=== PATIENT | male | born 1995 | race Caucasian/White ===

== ENCOUNTER 2017-05-30 20:20 | Observation (INO) | payer OTHER ==
[~2017-05-30 20:20] MED LIST: ISOVUE-370 76%-LOCM 1 ML ONE
[2017-05-30 21:15] LABS: #Lymphocytes 1.3 thou/uL (1.20-3.40); #Monocytes 1.4 thou/uL (0.11-0.59); #Neutrophils 15.1 thou/uL (1.40-6.50); %Basophils 0.1 % (0.0-1.0); %Eosinophils 0.1 % (0.0-10.0); %Lymphocytes 7.1 % (21.0-51.0); %Monocytes 7.9 % (0.0-10.0); Hematocrit 49.5 % (42.0-52.0); Mean Platelet Volume 7.7 fL (7.4-10.4); Red Blood Cell (RBC) Count 5.49 mill/uL (4.70-6.10); White Blood Cell (WBC) Count 17.8 thou/uL (4.8-10.8)
[2017-05-30 21:36] LABS: ALT (SGPT) 16 U/L (8-55); AST (SGOT) 32 U/L (5-34); Alkaline Phosphatase 57 U/L (40-150); Anion Gap 17 mmol/L (10-20); BUN (Urea Nitrogen) 13 mg/dL (8.9-20.6); Bilirubin, Total 1.4 mg/dL (0.2-1.2); Calc. Creatinine Clearance 0 mL/min (70-130); Calcium 9.6 mg/dL (7.8-10.44); Carbon Dioxide 24 mmol/L (22-29); Chloride 100 mmol/L (98-107); Estimated GFR-MDRD Greater than 90; Globulin 3.5 g/dL (2.4-3.5); Lipase 6 U/L (8-78); Protein, Total 7.9 g/dL (6.0-8.3)
[2017-05-30] MEDS ORDERED: Ondansetron HCl/PF 4 MG/2 ML Vial ONE (21:41)
[2017-05-30] MEDS ORDERED: Piperacillin/Tazobactam 3.375 GM in Sodium Chloride 0.9% 100 ML IVPB SCH (22:45)
--- NOTE | 2017-05-30 22:55 | CT ---
CT ABDOMEN AND PELVIS WITH CONTRAST 05/30/17 HISTORY: Coffee ground vomiting and right lower quadrant pain with subjective fever. COMPARISON: None. FINDINGS: The lung bases are clear. No pericardial effusion. The appendix is dilated and fluid filled with abnormal fluid in the right pericolic gutter. No append icolith is appreciated. The appendix travels posterior and laterally from the cecal base and the tip extends anterior to the ascending colon. Liver, gallbladder, pancreas are unremarkable. The spleen is enlarged measuring almost 13 cm. There are few mildly distended loops of small bowel in the mid abdomen that may reflect a focal ileus . The skeleton is unremarkable. IMPRESSION: Acute appendicitis with the appendix originating posterior to the cecal base extending laterally ric g the left paracolic gutter with tip anterior to the ascending colon. There is moderate inflammatory stranding as well as small volume free fluid. This is concerning for early transudation of fluid acro ss the wall with a focal area of poor mucosal enhancement anteriorly, series 2, image 57 which may re present early small focal perforation. Code CR Dr. Covington, 10:24 p.m. POS: [facility]
[2017-05-31] MEDS ORDERED: Morphine 4 MG/ML VIAL IV PRN (00:09)
[2017-05-31] MEDS: Dextrose 5 %-0.45 % NaCl 1,000 ML IV SCH ×2 (00:37→07:44)
[2017-05-31 01:06] VITALS: BMI 25.0
[2017-05-31] MEDS ORDERED: Piperacillin/Tazobactam 3.375 GM in Sodium Chloride 0.9% 100 ML IVPB SCH ×2 (06:30→12:00)
[2017-05-31] MEDS ORDERED: Morphine PF 1 MG/ML SYR IV PRN (06:46)
[2017-05-31] MEDS ORDERED: Fentanyl 100 MCG/2 ML VIAL ONE (07:24)
[2017-05-31] MEDS ORDERED: Bupivacaine/Epinephrine 0.25% 30 ML VIAL ONE (07:33)
[2017-05-31] MEDS ORDERED: Succinylcholine Chloride 20 MG/ML 10 ml SYRINGE FS ONE (08:20)
[2017-05-31] MEDS ORDERED: Ketorolac Tromethamine 30 MG/ML VIAL ONE (08:20)
[2017-05-31] MEDS ORDERED: Dexamethasone 20 MG/5 ML VIAL ONE (08:20)
[2017-05-31] MEDS ORDERED: Ondansetron HCl/PF 4 MG/2 ML Vial ONE (08:20)
[2017-05-31] MEDS ORDERED: Propofol 200 MG/20 ML VIAL ONE (08:20)
[2017-05-31] MEDS ORDERED: Lidocaine 2% PF 10 ML AMP (For Epidural Use) ONE (08:20)
[2017-05-31] MEDS ORDERED: Glycopyrrolate 0.2 MG/ML 5 ML SYRINGE ONE (08:20)
--- NOTE | 2017-05-31 08:57 | HP ---
CHIEF COMPLAINT: Abdominal pain. HISTORY OF PRESENT ILLNESS: Mr. Stephens is a 22-year-old man who had onset of nausea and vomiting ab out 2 hours after eating a [employer]. He felt bad, but did not hurt in one particular area. He w ent to bed. When he woke up the next morning, he had abdominal pain. This went from being generaliz ed to more localized in the right lower quadrant, so he came into the emergency room. He had subject jac fevers and chills, but did not take his temperature. PAST MEDICAL HISTORY: None. PAST SURGICAL HISTORY: [place]ow tooth and ear surgery, but no abdominal surgeries. FAMILY HISTORY: Skin cancer, hypertension, and cardiomegaly on his father's side. SOCIAL HISTORY: Occasional marijuana. No smoking, no drinking. ALLERGIES: He has allergies to adverse drug reactions to LATEX and ALBUTEROL. MEDICATIONS: He is not on any medications. He did receive Zosyn in the emergency room. REVIEW OF SYSTEMS: Ten system review of systems is negative except per HPI. PHYSICAL EXAMINATION: VITAL SIGNS: Patient has been afebrile since his admission. Heart rate 70, respirations 18, blood p ressure 135/71, 98% saturated on room air. GENERAL: Reveals a healthy appearing young man, in no acute distress. He is slightly flushed, but n ot toxic in appearance. He is not jaundiced or icteric. HEENT: Unremarkable. NECK: Supple, without lymphadenopathy or thyroid nodules. HEART: Regular in its rate and rhythm without murmurs, rubs or gallops. LUNGS: Clear to auscultation bilaterally. He does not have any pain with deep inspiration. ABDOMEN: Soft and nondistended. He does not have any palpable masses or hernias. He is very tender to palpation in the right lower quadrant. He has referred pain to the right lower quadrant with pal pation in the left abdomen, but does not exhibit rigidity, rebound or guarding. EXTREMITIES: Warm and well perfused without edema. NEUROLOGIC: No focal deficits. PSYCHIATRIC: Alert, oriented, and appropriate. IMAGING: CT images are reviewed and I agree with the written report. The patient has a very dilated appendix with some periappendiceal fluid. No other acute abnormalities are noted. LABORATORY DATA: White count is elevated at 17.8 with a left shift. Electrolytes are unremarkable. His potassium is slightly low at 3.4, bilirubin is slightly high at 1.4, but other LFTs are normal. ASSESSMENT: Acute appendicitis. PLAN: Laparoscopic appendectomy. The patient's diagnosis and recommended treatment were discussed w ith him in detail. The inherent risks of surgery were also discussed. These include but are not cunha ited to bleeding, infection, risks of anesthesia, damage to nearby structure including bowel and bloo d vessels, need for open operation or further procedures. He understands that if the appendix is per forated, then we will undergo washout and drain placement as well and will need to stay in the hospit al for ongoing IV antibiotics until his infection resolved. If his appendix is not perforated, he ma y be discharged home later today. All of his questions were answered and he wishes to proceed.
[2017-05-31] MEDS ORDERED: HYDROmorphone 2 MG/ML VIAL SLOW IVP PRN (09:58)
[2017-05-31] MEDS ORDERED: Promethazine HCl 25 MG/ML VIAL IM PRN (09:58)
[2017-05-31] MEDS ORDERED: Ondansetron HCl/PF 4 MG/2 ML Vial IVP PRN (09:58)
[2017-05-31] MEDS ORDERED: Promethazine HCl 25 MG/ML VIAL SLOW IVP PRN (09:58)
[2017-05-31] MEDS ORDERED: HYDROcodone/Acetaminophen 7.5/325 mg Tablet PO PRN ×2 (11:29)
[2017-05-31] MEDS ORDERED: Morphine PF 1 MG/ML SYR IVP PRN (11:30)
[2017-05-31] MEDS ORDERED: Morphine 4 MG/ML VIAL SLOW IVP PRN ×2 (11:30→11:31)
[2017-05-31] MEDS ORDERED: Piperacillin/Tazobactam 3.375 GM, Admixture Fee 1 EACH in Sodium Chloride 0.9% 100 ML IVPB SCH (12:00)
[2017-05-31 12:27] VITALS: BP 139/79; TEMP 98.6
--- NOTE | 2017-06-01 00:45 | PDOC.OP ---
Operative Note - Operative Note Operative Note: PROCEDURE: Laparoscopic appendectomy SURGEON: Chaz Delgado M.D. DATE OF PROCEDURE:05/31/2017 PREOPERATIVE DIAGNOSIS: Appendicitis POSTOPERATIVE DIAGNOSIS: Appendicitis HISTORY: Patient is a 22-year-old male who presented to the emergency room with signs and symptoms consistent with appendicitis which was confirmed by CT. Recommendation was made to proceed to the operating room for laparoscopic appendectomy. He also had a previously drained abscess on his left upper thigh which did not appear to have any remaining fluctuance, but it was still quite indurated so it was recommended that this be examined under ultrasound and if needed incision and drainage performed. FINDINGS: Inflamed appendix without perforation. Inflamed subcutaneous tissues but no drainable abscess of the left thigh. DESCRIPTION OF PROCEDURE: After informed consent was obtained and appropriate antibiotics continued, the patient was taken to the operating room and placed in the supine position and general endotracheal anesthesia was administered. The bladder was decompressed with a Saab catheter and the abdomen was prepped and draped in the standard sterile fashion. Local anesthesia was infused to the skin and subcutaneous tissues superior to the umbilicus. A transverse skin incision was made and a Veress needle placed into the abdominal cavity and carbon dioxide gas insufflated. Opening pressure was less than 5 but rapidly maria elena to 15. A second attempt was made with the same results and it was felt that gas was being insufflated into the preperitoneal tissues. The skin incision was extended and dissection carried down to the fascia which was incised. Gas escape from the preperitoneal space and the peritoneum was identified grasped and incised under direct vision. The 10 mm trocar was placed into the abdominal cavity. Carbon dioxide gas was insufflated to an intra- abdominal pressure 15 and the patient tolerated this well. The abdominal cavity was carefully examined and there was no evidence of Veress needle or trocar injury. There was gas in the preperitoneal tissues. Two additional ports were placed in the suprapubic and left lateral abdomen under direct laparoscopic vision after local anesthesia was infused at these sites. The appendix was identified and appeared inflamed but not perforated. The appendix was grasped by the mesoappendix and elevated. The mesoappendix was then sequentially ligated and divided down to the base of the appendix, which was normal in appearance and was clearly seen to be at the confluence of the tenia. Two Endoloops were placed around the base of the appendix and the appendix was divided between these Endoloops, placed into an EndoCatch bag and drawn out through the umbilical incision. The umbilical trocar was then replaced and the operative site was easily irrigated to clear. The suprapubic and left lateral trocars were then removed under direct laparoscopic vision and hemostasis verified. Carbon dioxide gas was desufflated through the umbilical trocar which was then removed. The fascia was closed under direct vision with 0 Vicryl sutures with excellent technical result. The skin incisions were irrigated and additional local anesthesia infused at each site. The skin was closed with 4-0 subcuticular Monocryl sutures and Dermabond dressings were placed. The site of the previously drained left thigh abscess was then examined with ultrasound and no drainable fluid collection identified, only inflamed subcutaneous tissues. The patient was extubated and taken to the recovery room in good condition. Estimated blood loss was minimal. There were no complications. SPECIMEN: Appendix.
== END 2017-05-31 16:17 | disposition home or self-care (01) ==
LOC: ERS 20:20 → SURG A 05-31 00:08
PROVIDERS: ADMIT Surgery; ATTEND Surgery
PROC: 0DTJ4ZZ Resection of Appendix, Percutaneous Endoscopic Approach (ICD-10-PCS; principal; 2017-05-31)
DX: K35.80 Unspecified acute appendicitis (principal); F12.90 Cannabis use, unspecified, uncomplicated; Z79.899 Other long term (current) drug therapy; Z79.891 Long term (current) use of opiate analgesic; Z79.2 Long term (current) use of antibiotics; Z88.8 Allergy status to other drugs, medicaments and biological substances; Z98.818 Other dental procedure status; Z98.890 Other specified postprocedural states
CPT/HCPCS: 36415; 74177; 80053; 83690; 85025; 88304; 93005; 96361; 96365; 96366; 96375; 96376; A4216; G0378; J1100; J1170; J1885; J2001; J2270; J2274; J2405; J2543; J2704; J3010; J7050